=== PATIENT | male | born 1990 | race Caucasian/White ===

== ENCOUNTER 2018-12-04 15:18 | Emergency (ER) | payer OTHER ==
[~2018-12-04] VITALS: Ht 175.3 cm; Wt 75.0 kg
[2018-12-04] MEDS ORDERED: IBUP-1114 PO (15:40)
[2018-12-04] MEDS ORDERED: OXYC1TAB23 PO (15:40)
[2018-12-04] MEDS ORDERED: MORPHINE 2 MG/ML 1ML SYRINGE (J2270) IV PRN (17:00)
[2018-12-04] MEDS ORDERED: ONDANSETRON 4MG/2ML VIAL (J2405) IV ONE (17:00)
[2018-12-04] MEDS ORDERED: NS 1,000 ML IV ONE ×2 (17:00)
[2018-12-04 17:21] LABS: HEMATOCRIT 45.7 % (42.0-52.0); HEMOGLOBIN 15.1 g/dl (13.5-17.5); MEAN CORPUSCULAR HEMOGLOBIN 30.1 pg (27.0-33.0); PLATELET COUNT, AUTOMATED 246 10^3/uL (150-450); RED BLOOD COUNT 5.02 10^6/uL (4.30-6.10)
--- NOTE | 2018-12-04 17:40 | REP ---
Head CT without contrast: History: Syncope. Injury in a fall. Comparison study: No comparison study. CT findings: Bone window settings demonstrate an intact bony calvarium. There is no evidence of skull fracture or incidental bony calvarial lesion. The visualized paranasal sinuses appear clear. No intraorbital abnormality is seen. On soft tissue window setting images; the lateral, third, and fourth ventricles are normal in size and position. Leigh-white differentiation pattern is normal above and below the tentorium. There are is no evidence of intracranial hemorrhage. No mass, edema, infarction, or midline shift is seen. No extra-axial fluid collection is appreciated. Impression: Negative noncontrast head CT. Electronically Signed by Feliciano Dubois MD 12/04/2018 05:32 P
[2018-12-04 17:44] LABS: BLOOD UREA NITROGEN 12 MG/DL (7-18); CALCIUM LEVEL 8.7 MG/DL (8.5-10.1); CARBON DIOXIDE LEVEL 29 MEQ/L (21-32); CHLORIDE LEVEL 105 MEQ/L (98-107); CREATININE FOR GFR 0.92 MG/DL (0.70-1.30); GLOMERULAR FILTRATION RATE > 60.0 (>60); GLUCOSE, FASTING 89 MG/DL (70-100); POTASSIUM SERUM 4.1 MEQ/L (3.5-5.1); SODIUM LEVEL 141 MEQ/L (136-145)
[2018-12-04] MEDS ORDERED: KETOROLAC 30 MG/ML VIAL (J1885) IV ONE (19:15)
[2018-12-04 20:18] VITALS: BP 118/66
--- NOTE | 2018-12-04 21:07 | ECGEPIP ---
Stationary ECG Study [facility] - ED Test Date: 2018-12-04 Pat Name: HANNA MELVIN Department: Room: - Gender: M Tooling Engineer: ct : 1990 Requested By: Dane Sharma Order Number: [id number] Reading MD: Ellie Franklin Measurements Intervals [place] Rate: 57 P: 31 [place]: 144 QRS: 30 QRSD: 89 T: 12 QT: 390 QTc: 382 Interpretive Statements SINUS BRADYCARDIA NO PRIOR FOR COMPARISON Electronically Signed On 12-04-2018 21:07:26 EDT by Ellie Franklin
== END 2018-12-04 20:33 | disposition home or self-care (01) ==
LOC: M ED 15:18 → EDBD 15:18 → M ED 20:33
DX: R55 Syncope and collapse (principal); R00.1 Bradycardia, unspecified; Z79.899 Other long term (current) drug therapy
CPT/HCPCS: 70450; 80048; 85027; 93005; 96361; 96374; 96375; 99284; J1885; J2270; J2405